=== PATIENT | female | born 1990 | race Caucasian/White ===

== ENCOUNTER 2018-09-26 22:10 | Emergency (ER) | payer OTHER ==
[~2018-09-26] VITALS: Ht 162.6 cm; Wt 95.3 kg
[2018-09-26 22:15] VITALS: BP 150/79
--- NOTE | 2018-09-26 22:15 | NUR ---
28/F PRESENTS TO ED WITH FAMILY/FRIEND, C/O 12/13 CONSTANT FEELING OF PRESSURE/TIGHTNESS ON ANTERIOR NECK, RADIATING TO CHEST, CONSTANT X8 HRS, S/P EATING LUNCH TODAY. PT REPORTS FEELING SOB. DENIES N/V. NO RASH OR ITCHING, NO S/S OF ANGIOEDEMA. AOX4, GCS 15, SKIN PINK WARM AND DRY, RR EVEN AND UNLABORED. LUNG SOUNDS CLEAR BL. HR EVEN AND REGULAR, NSR ON MONITOR. ER MD MADE AWARE. DENIES ASTHMA OR ANY MED HX. REPORTS TAKING ALBUTEROL INHALER 2X TODAY. SOCIAL HX: APPROX 1/2 PPD SMOKER, OCCASIONAL CAFFEINE AND CANNABINOID USE.
--- NOTE | 2018-09-26 22:28 | NUR ---
EKG PERFORMED AT BEDSIDE
[2018-09-26] MEDS ORDERED: KETOROLAC 60 MG/2 ML VIAL IM ONE (23:00)
[2018-09-26] MEDS ORDERED: MORPHINE SULFATE 4 MG/ML SYR IM ONE (23:35)
[2018-09-27 00:12] VITALS: BP 138/75
--- NOTE | 2018-09-27 00:13 | NUR ---
Patient discharged with v/s stable. Written and verbal after care instructions given and explained. Patient alert, oriented and verbalized understanding of instructions. Ambulatory with steady gait. All questions addressed prior to discharge. ID band removed. Patient advised to follow up with PMD. Rx of PREDNISONE, MOTRIN, NORCO given. Patient educated on indication of medication including possible reaction and side effects. Opportunity to ask questions provided and answered.
== END 2018-09-27 00:12 | disposition home or self-care (01) ==
LOC: MED 22:10
DX: R07.89 Other chest pain (principal); R06.02 Shortness of breath; F41.9 Anxiety disorder, unspecified; F17.200 Nicotine dependence, unspecified, uncomplicated
CPT/HCPCS: 81002; 81025; 93005; 96372; 99283; J1885; J2270

== ENCOUNTER 2018-11-30 06:13 | Emergency (ER) | payer SELFPAY ==
[~2018-11-30] VITALS: Ht 162.6 cm; Wt 104.3 kg
[2018-11-30 06:20] VITALS: BP 150/84
--- NOTE | 2018-11-30 06:29 | NUR ---
28 Y/O FEMALE PRESENTS TO ED WITH C/O NUMBNESS OF SKIN OF LOWER JAW AND LIPS AND NUMBNESS TO BILAT UPPER EXTREMITIES X1 HR. PT HAS HX OF ANXIETY. VSS. MOTHER AT BEDSIDE. POSITIONED IN BED WITH HOB ELEVATED. X1 RAIL UP. ER MD AWARE. CONTINUE TO MONITOR.
--- NOTE | 2018-11-30 06:29 | NUR ---
PT AMBULATED W/ STEADY GAIT TO BED 9. SAFETY PRECAUTIONS IMPLEMENTED.
--- NOTE | 2018-11-30 07:10 | NUR ---
RECEIVED REPORT FROM GILLIAN ALVARADO FOR TRANSFER OF CARE
--- NOTE | 2018-11-30 07:18 | NUR ---
DR GRISSOM AT BEDSIDE FOR PT EVALUATION
--- NOTE | 2018-11-30 07:20 | NUR ---
PT AMBULATED TO THE BATHROOM WITH STEADY GAIT
[2018-11-30] MEDS ORDERED: hydrOXYzine HCL 25 MG TAB PO ONE (07:30)
[2018-11-30 08:28] LABS: BILIRUBIN,URINE NEGATIVE (NEGATIVE); BLOOD, URINE 1+ (NEGATIVE); COLOR,URINE YELLOW (YELLOW); LEUKOCYTE ESTERASE ,URINE TRACE (NEGATIVE); NITRITE, URINE NEGATIVE (NEGATIVE); UGLUCOSE NEGATIVE (NEGATIVE)
[2018-11-30 08:35] LABS: BARBITURATE, URINE NEG. ng/ml (NEG <=200); BENZODIAZEPINE, URINE NEG. ng/mL (NEG <=200); CANNABINOID, URINE POS. ng/mL (NEG <=50); COCAINE, URINE NEG. ng/mL (NEG <=300); OPIATE, URINE NEG. ng/mL (NEG <=2000); PHENCYCLIDINE SCREEN,URINE NEG. ng/mL (NEG <=25)
[2018-11-30 08:48] LABS: APPEARANCE,URINE SLIGHTLY HAZY (CLEAR)
[2018-11-30 08:50] LABS: RBC,URINE 0-5 /HPF (0-5)
[2018-11-30 09:15] VITALS: BP 135/79
--- NOTE | 2018-11-30 09:15 | NUR ---
Patient discharged with v/s stable. Written and verbal after care instructions given and explained. Patient alert, oriented and verbalized understanding of instructions. Ambulatory with steady gait. All questions addressed prior to discharge. ID band removed. Patient advised to follow up with PMD. Rx of Vistaril given. Patient educated on indication of medication including possible reaction and side effects. Opportunity to ask questions provided and answered.
== END 2018-11-30 09:15 | disposition home or self-care (01) ==
LOC: MED 06:13
DX: R20.0 Anesthesia of skin (principal); F48.9 Nonpsychotic mental disorder, unspecified; F17.200 Nicotine dependence, unspecified, uncomplicated
CPT/HCPCS: 80305; 81001; 81025; 87086; 99283

== ENCOUNTER 2019-03-05 09:15 | Emergency (ER) | payer OTHER ==
[~2019-03-05] VITALS: Ht 193 cm; Wt 104.3 kg
[2019-03-05 09:26] VITALS: BP 144/80
[2019-03-05 11:13] VITALS: BP 141/76
== END 2019-03-05 11:20 | disposition home or self-care (01) ==
LOC: MED 09:15
DX: S60.222A Contusion of left hand, initial encounter (principal); S80.12XA Contusion of left lower leg, initial encounter; S93.402A Sprain of unspecified ligament of left ankle, initial encounter; R03.0 Elevated blood-pressure reading, without diagnosis of hypertension; F17.210 Nicotine dependence, cigarettes, uncomplicated; W01.0XXA Fall on same level from slipping, tripping and stumbling without subsequent striking against object, initial encounter; Y93.89 Activity, other specified; Y92.89 Other specified places as the place of occurrence of the external cause; Y99.8 Other external cause status
CPT/HCPCS: 73130; 73590; 73610; 99283

== ENCOUNTER 2020-03-24 18:49 | Emergency (ER) | payer OTHER ==
[~2020-03-24] VITALS: Ht 162.6 cm; Wt 116.6 kg
[2020-03-24 18:56] VITALS: BP 171/102
[2020-03-24] MEDS ORDERED: KETOROLAC 30 MG/ML VIAL IM ONE (20:00)
[2020-03-24 20:06] VITALS: BP 155/89
== END 2020-03-24 20:06 | disposition home or self-care (01) ==
LOC: MED 18:49
DX: M25.571 Pain in right ankle and joints of right foot (principal); F17.290 Nicotine dependence, other tobacco product, uncomplicated; R03.0 Elevated blood-pressure reading, without diagnosis of hypertension; Z71.6 Tobacco abuse counseling; Z98.890 Other specified postprocedural states
CPT/HCPCS: 73610; 73630; 96372; 99284; J1885; Q0092

== ENCOUNTER 2020-09-22 15:17 | Emergency (ER) | payer OTHER ==
[~2020-09-22] VITALS: Ht 162.6 cm; Wt 118.8 kg
[2020-09-22 15:24] VITALS: BP 151/95
[2020-09-22] MEDS ORDERED: MORPHINE SULFATE 4 MG/ML SYR IVP ONE (17:05)
[2020-09-22] MEDS ORDERED: NACL 0.9% 1,000 ML IV ONE (17:05)
[2020-09-22 17:32] LABS: BASOPHILS # (AUTO) 0.1 K/uL (0.00-0.22); EOSINOPHILS # (AUTO) 0.2 K/uL (0-0.4); HEMATOCRIT 38.2 % (36-48); HEMOGLOBIN 12.8 g/dL (12.0-16.0); LYMPHOCYTES # (AUTO) 4.5 K/uL (2.5-16.5); LYMPHOCYTES % (AUTO) 37.8 % (20.5-51.1); MEAN CORPUSCULAR HEMOGLOBIN 28 pg (27-31); MEAN CORPUSCULAR HGB CONC 34 g/dL (33-37); MEAN CORPUSCULAR VOLUME 83.7 fL (80-94); MONOCYTES # (AUTO) 0.9 K/uL (0.8-1.0); MONOCYTES % (AUTO) 7.6 % (1.7-9.3); NEUTROPHILS # (AUTO) 6.2 K/uL (1.8-7.7); NEUTROPHILS % (AUTO) 51.6 % (42.2-75.2); PLATELET COUNT (AUTO) 251 K/uL (140-450); RED BLOOD CELL COUNT(AUTO) 4.56 MIL/uL (4.20-5.40); RED CELL DISTRIBUTION WIDTH 13.6 % (11.6-13.7); WHITE BLOOD COUNT (AUTO) 11.9 K/uL (4.8-10.8)
[2020-09-22 17:43] LABS: ALBUMIN 3.8 g/dL (3.4-5.0); ANION GAP 11.4 (8-16); CARBON DIOXIDE 27.7 mmol/L (21-32); CREATININE 0.6 mg/dL (0.6-1.3); POTASSIUM 4.1 mmol/L (3.5-5.1); TOTAL BILIRUBIN 0.2 mg/dL (0.0-1.0)
[2020-09-22] MEDS ORDERED: KETOROLAC 30 MG/ML VIAL IVP ONE ×2 (17:55)
[2020-09-22] MEDS ORDERED: ACET-8386 PO (19:19)
[2020-09-22] MEDS ORDERED: IBUP-2213 PO (19:19)
[2020-09-22 19:47] VITALS: BP 151/95
== END 2020-09-22 19:40 | disposition home or self-care (01) ==
LOC: MED 15:17
DX: M54.5 Low back pain (principal)
CPT/HCPCS: 36415; 74176; 80053; 81002; 81025; 85025; 96361; 96374; 96375; 99284; J1885; J2270; J7030